=== PATIENT | female | born 1980 | race Caucasian/White ===

== ENCOUNTER 2020-03-28 10:51 | Day surgery (SDC) | payer MEDICAID ==
[~2020-03-28] VITALS: Ht 160 cm; Wt 69.7 kg
[2020-03-28] MEDS ORDERED: ESCI10TA PO (11:17)
[2020-03-28] MEDS ORDERED: ESCI20TA PO (11:17)
[2020-03-28] MEDS ORDERED: normal saline 1000ml 1,000 ML IV SCH (11:20)
[2020-03-28] MEDS ORDERED: METF500T PO (11:23)
[2020-03-28] MEDS ORDERED: RISP0.5T74 PO (11:23)
[2020-03-28] MEDS ORDERED: ANAS1TAB10 PO (11:23)
[2020-03-28] MEDS ORDERED: PREG150C PO (11:23)
[2020-03-28] MEDS ORDERED: CETI-90 PO (11:23)
[2020-03-28] MEDS ORDERED: GEMF600T PO (11:23)
[2020-03-28] MEDS ORDERED: RISP1TAB13 PO (11:23)
[2020-03-28] MEDS ORDERED: CANNIBUS (11:23)
[2020-03-28] MEDS ORDERED: FERR325T28 PO (11:23)
[2020-03-28] MEDS ORDERED: LEVE750T6 PO (11:23)
[2020-03-28] MEDS ORDERED: AMIT-189 PO (11:23)
[2020-03-28] MEDS ORDERED: PROP40TA72 PO (11:23)
[2020-03-28 11:29] VITALS: BP 98/66
[2020-03-28 11:57] LABS: BASOPHILS # (AUTO) 0.1 X10'3 (0-0.2); BASOPHILS % (AUTO) 0.5 % (0-1); EOSINOPHILS # (AUTO) 0.2 X10'3 (0-0.9); EOSINOPHILS % (AUTO) 1.4 % (0-6); HEMATOCRIT 41.1 % (35.0-45.0); HEMOGLOBIN 13.7 g/dl (12.0-16.0); LYMPHOCYTES # (AUTO) 2.8 X10'3 (1.1-4.8); MEAN CORPUSCULAR HEMOGLOBIN 30.1 PG (27.0-31.0); MEAN CORPUSCULAR HGB CONC 33.5 g/dL (33.0-36.5); MEAN CORPUSCULAR VOLUME 90.1 FL (78-98); MEAN PLATELET VOLUME 9.3 FL (7.4-10.4); MONOCYTES # (AUTO) 0.8 X10'3 (0-0.9); MONOCYTES % (AUTO) 5.6 % (2-12); NEUTROPHILS # (AUTO) 9.7 X10'3 (1.8-7.7); NEUTROPHILS % (AUTO) 71.5 % (42-75); PLATELET COUNT 219 X10'3 (140-440); RED BLOOD COUNT 4.56 X10'6 (4.20-5.60); RED CELL DISTRIBUTION WIDTH 15.4 % (11.5-14.5); WHITE BLOOD COUNT 13.5 X10'3 (4.5-11.0)
[2020-03-28] MEDS ORDERED: fentaNYL/PF 50MCG/1 ML 2ML syringe ONE ×2 (13:17→13:43)
[2020-03-28] MEDS ORDERED: midazolam 2 mg/2 ml injection ONE ×2 (13:17→13:43)
[2020-03-28] MEDS ORDERED: LIDOcaine 1%/PF 5ML 10 MG/ML VIAL ONE (13:22)
[2020-03-28] MEDS ORDERED: diphenhydrAMINE 50 mg/ml inj ONE (13:22)
[2020-03-28] MEDS ORDERED: HYDROcodone/acetaminophen 5mg/325mg tablet PO PRN (14:10)
[2020-03-28 14:11] VITALS: BP 125/67
[2020-03-28 14:25] VITALS: BP 118/77
[2020-03-28 14:50] VITALS: BP 149/76
[2020-03-28 15:05] VITALS: BP 145/83
== END 2020-03-28 15:25 | disposition home or self-care (01) ==
LOC: SSTAY O 10:51
PROVIDERS: ATTEND Radiology Diagnostic Radiology
DX: C79.51 Secondary malignant neoplasm of bone (principal); C50.411 Malignant neoplasm of upper-outer quadrant of right female breast; J44.9 Chronic obstructive pulmonary disease, unspecified; G43.909 Migraine, unspecified, not intractable, without status migrainosus; F41.9 Anxiety disorder, unspecified; M19.90 Unspecified osteoarthritis, unspecified site; E78.00 Pure hypercholesterolemia, unspecified; E11.40 Type 2 diabetes mellitus with diabetic neuropathy, unspecified; Z88.8 Allergy status to other drugs, medicaments and biological substances; Z79.899 Other long term (current) drug therapy; F17.210 Nicotine dependence, cigarettes, uncomplicated; Z79.84 Long term (current) use of oral hypoglycemic drugs
CPT/HCPCS: 20225; 36415; 77002; 82948; 85025; 99152; 99153; J1200; J2250; J3010; J7030